=== PATIENT | female | born 1965 | race Caucasian/White ===

== ENCOUNTER 2016-08-20 06:57 | Day surgery (SDC) | payer BC, OTHER ==
[~2016-08-20 06:57] MED LIST: RINGERS SOLUTION,LACTATED 1,000 ML IV PRN
[2016-08-20 07:20] LABS: Hematocrit 41.5 % (37.0-47.0); Hemoglobin 14.1 gm/dL (12.5-16.0); Mean Cell Volume 92.2 fl (78-100); Mean Corpuscular Hemoglobin 31.3 pg (27-31); Mean Platelet Volume 9.2 fl (6.0-9.5); Neutrophil # 3.7 K/mm3 (1.3-6.0); Neutrophil % 61.1 % (42-75.0); Platelet Count 251 K/mm3 (150-450); Red Cell Distribution Width 12.7 % (11.5-14.0); White Blood Count 6.1 K/mm3 (4.0-10.5)
[2016-08-20] MEDS ORDERED: RINGERS SOLUTION,LACTATED 1,000 ML IV ONE (09:37)
[2016-08-20] MEDS ORDERED: oxyCODONE HCL/ACETAMINOPHEN 1 TAB TABLET PO PRN (10:04)
[2016-08-20] MEDS ORDERED: IBUPROFEN 600 MG TABLET PO PRN (10:05)
[2016-08-20 10:56] VITALS: BP 114/72
--- NOTE | 2016-08-20 14:04 | OR ---
Operative Report - Dictated Report Narrative: Operative Report 08/20/16 Hysteroscopy Dilatation and Curettage Preoperative Diagnosis: Abnormal Appearance of Endometrium, Uterine Mass, Oligomenorrhea Postoperative Diagnosis: Abnormal Appearance of Endometrium, Uterine Mass, suspect Fibroid, Oligomenorrhea Procedure: Hysteroscopy Dilatation and Curettage Surgeon: Radha Robertson M.D. Anesthesia: Bao Carr, KACI, IV sedation Findings: Uterine sound 11 cm. There was a mass on the posterior aspect of the uterus which appeared polypoid but when partially removed palpated more like a fibroid. Fluids: 700 ml EBL: Minimal Drains: None Complications: None Condition: Stable Pathology: Endometrial curettings, pieces of uterine mass Procedure: The patient was taken to the operating room with IV fluids running. She was placed in the dorsal lithotomy position after anesthesia was induced. A bivalve speculum was placed in the vagina. The anterior lip of the cervix was grasped with a single-tooth tenaculum. Uterine sound was passed into the endometrial cavity with ease. Uterine sound was 11 cm. The cervix was dilated with Michael dilators. The hysteroscope was introduced into the endometrial cavity. The cavity was distended with normal saline. [place] were visualized bilaterally. There was a mass on the posterior aspect of the uterus which appeared polypoid. The hysteroscope was removed. The cavity was sharply curetted without difficulty. The hysteroscope was once again introduced into the cavity. The mass remained. [place] polyp forceps were used to remove a portion of the mass in multiple pieces. The entire mass was not removed for fear of perforation. The hysteroscope was removed. The single-tooth tenaculum was removed. Sites were hemostatic. The speculum was removed from the vagina. Sponge counts were correct 2. The patient tolerated the procedure well.
== END 2016-08-20 06:58 | disposition home or self-care (01) ==
LOC: AMB 06:57
PROVIDERS: ATTEND Obstetrics & Gynecology
PROC: 0UDB8ZX Extraction of Endometrium, Via Natural or Artificial Opening Endoscopic, Diagnostic (ICD-10-PCS; principal; 2016-08-20 08:00)
DX: D25.9 Leiomyoma of uterus, unspecified (principal); T19.3XXA Foreign body in uterus, initial encounter; N91.5 Oligomenorrhea, unspecified; Z87.891 Personal history of nicotine dependence; Z68.23 Body mass index [BMI] 23.0-23.9, adult